=== PATIENT | male | born 1985 | race American Indian/Alaskan Native ===

== ENCOUNTER 2018-01-19 22:05 | Emergency (ER) | payer OTHER ==
[2018-01-19] MEDS ORDERED: ceFAZolin 2 GM in NACL 0.9% 100 ML IV ONE (22:29)
[2018-01-19] MEDS ORDERED: DILAUDID IV ONE (22:29)
--- NOTE | 2018-01-19 22:29 | Emergency Department Report ---
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 He has a puncture wound to his left face just below his left eye, and can move his eye, but is painful to move the eye, and his eye is blurry , although he can see light and see large objects. He has significant pain, rates it maximally, localized to the area of injury. He has no difficulty speaking, breathing, and no other injury. He did not fall or strike his head, and there was no loss of consciousness. He has no focal neurologic deficits. Past medical history is one of good general health, takes no routine medications , has no allergies, does not recall his last tetanus shot. - Related Data Previous Rx's Medication Instructions Recorded Last Taken Type Amoxicillin/Potassium Clav 1 each PO BID #14 tablet 01/20/18 Unknown Rx [Augmentin 875-125 Tablet] HYDROcodone/APAP 7.5-325 [[place] 1 each PO Q6HR PRN #25 tablet 01/20/18 Unknown Rx 7.5/325] Sulfamethoxazole/Trimethoprim 1 each PO BID #14 tablet 01/20/18 Unknown Rx [Bactrim DS TAB] Allergies Allergy/AdvReac Type Severity Reaction Status Date / Time chocolate flavor Allergy Rash Verified 08/19/16 10:04 ED Review of Systems ROS: Stated complaint: EYE INJURY Other details as noted in HPI ED Past Medical Hx - Social History Smoking Status: Current Some Day Smoker Substance Use Type: Alcohol - Medications Home Medications: Home Medications Medication Instructions Recorded Confirmed Last Taken Type Amoxicillin/Potassium Clav 1 each PO BID #14 tablet 01/20/18 Unknown Rx [Augmentin 875-125 Tablet] HYDROcodone/APAP 7.5-325 [[place] 1 each PO Q6HR PRN #25 tablet 01/20/18 Unknown Rx 7.5/325] Sulfamethoxazole/Trimethoprim 1 each PO BID #14 tablet 01/20/18 Unknown Rx [Bactrim DS TAB] ED Physical Exam - General General appearance: alert, in distress (moderate discomfort from area of injury left infra-orbital face) - Head Head exam: Present: normocephalic, other (facial laceration as noted above) - Eye Eye exam: Present: normal appearance, PERRL, other (decreased visual acuity, normal extraocular movements, conjugate gaze, no visible globe disruption) - ENT ENT exam: Present: mucous membranes moist, TM's normal bilaterally, other ( stellate burst-type laceration left infraorbital face, 5 separate laceration fragment, each 2 cm) - Neck Neck exam: Present: normal inspection, full ROM. Absent: tenderness - Respiratory Respiratory exam: Present: normal lung sounds bilaterally. Absent: respiratory distress, chest wall tenderness - Cardiovascular Cardiovascular Exam: Present: regular rate, normal heart sounds - GI/Abdominal GI/Abdominal exam: Present: soft. Absent: tenderness - Rectal Rectal exam: Present: deferred - Extremities Exam Extremities exam: Present: normal inspection, full ROM. Absent: tenderness, pedal edema - Back Exam Back exam: Present: normal inspection, full ROM. Absent: tenderness - Neurological Exam Neurological exam: Present: alert, oriented X3, CN II-XII intact (decreased visual acuity left eye, able to identify fingers correctly; right eye normal;). Absent: motor sensory deficit - Skin Skin exam: Present: warm, dry, intact ED Course Vital Signs 01/19/18 01/20/18 01/20/18 22:32 00:40 01:10 Temperature 36.6 C Pulse Rate 77 Respiratory 16 16 14 Rate Blood Pressure 137/74 O2 Sat by Pulse 99 Oximetry 01/20/18 02:03 Temperature Pulse Rate Respiratory 14 Rate Blood Pressure O2 Sat by Pulse Oximetry - Laceration /Wound Repair Left Face Wound Location: face Wound Length (cm): 8 (multiple flap fragments, 8 cm total) Wound's Depth, Shape: into muscle, stellate, contused tissue Wound Explored: no foreign body removed Irrigated w/ Saline (ccs): 250 Anesthesia: 1% Lidocaine Volume Anesthetic (ccs): 12 Wound Debrided: minimal Wound Repaired With: sutures Suture Size/Type: 6:0, 5:0 Number of Sutures: 12 Layer Closure?: Yes Deep Layer Suture Size/Type: 4:0, dexon Number Deep Layer Sutures: 4 Sterile Dressing Applied?: No ED Medical Decision Making - Radiology Data CT scan of orbit shows no foreign body, no fracture, globe is intact. - Medical Decision Making Patient has a left facial infraorbital laceration, burst-type, from being struck by metal hook from work assembly line, with multiple fragments that were reapproximated with subcutaneous and muscle sutures, 4 total, one central 5-0 nylon purse straight laceration to reapproximate the stellate fragments centrally, and a total of 12 running 6-0 Prolene sutures for each flap fragment , for a good closure with no debridement. No foreign body seen on examination. Patient will need close follow-up, will need ophthalmology consultation for resolution of blurriness of vision, but there is no evidence of globe injury, and no facial fracture either. Patient instructed to contact work to make arrangements for Worker's Comp. follow-up, and he may cosmetic revision, but I recommended that he deferred this for several months, but to keep this as a treatment option later. Suture removal planned for 5-7 days. - Differential Diagnosis facial laceration, globe laceration, periorbital fracture, facial fracture Critical Care Time: No Critical care attestation.: If time is entered above; I have spent that time in minutes in the direct care of this critically ill patient, excluding procedure time. ED Disposition Clinical Impression: Decreased visual acuity Complex laceration of face Qualifiers: Encounter type: initial encounter Qualified Code(s): S01.91XA - Laceration without foreign body of unspecified part of head, initial encounter Disposition: DC-01 TO HOME OR SELFCARE Is pt being admited?: No Does the pt Need Aspirin: No Condition: Stable Instructions: Suture Care (ED), Laceration (ED) Additional Instructions: Clinical wound gently, once a day, with warm water only, dabbing gently, to help keep clots from forming over sutures, so that the sutures can be more easily identified and more easily removed. He may apply whenever bandage you prefer for protective covering, and change bandage daily if necessary. We recommended 24-hour follow-up with an labor supervisor, and as we do not have an labor supervisor environmental control administrator, you should contact one locally, or contact her place of employment to make arrangements for follow-up with workman's comp doctor, as well as ophthalmologic follow-up as well. Take [place] for pain, and rest, and we have provided work release for the next week. See workman's comp doctor as soon as possible, and see labor supervisor within 1 or 2 days. Take Bactrim twice daily for infection, and take Augmentin twice daily as well for infection, for 1 week. Return for examination for signs of infection, which in fluid increased redness , increased pain, any increased swelling around the wound. Sutures can be removed in 5-7 days, and you may return here for suture removal, or at doctor's office, if they're capable as well. Your wound may need cosmetic revision later, but we recommended delay in this for at least 5 or 6 months, until you can see what the final wound and scar will look like. Prescriptions: Amoxicillin/Potassium Clav [Augmentin 875-125 Tablet] 1 each PO BID #14 tablet HYDROcodone/APAP 7.5-325 [[place] 7.5/325] 1 each PO Q6HR PRN #25 tablet PRN Reason: Pain Sulfamethoxazole/Trimethoprim [Bactrim DS TAB] 1 each PO BID #14 tablet Referrals: PRIMARY CARE, [Primary Care Provider] - 3-5 Days Forms: Work/School Release Form(ED) Time of Disposition: 04:44
[2018-01-19] MEDS ORDERED: BOOSTRIX IM ONE (22:30)
[2018-01-19] MEDS ORDERED: NACL 0.9% IR ONE (22:31)
[2018-01-20] MEDS ORDERED: DILAUDID IV PRN (00:19)
[2018-01-20] MEDS ORDERED: ZOFRAN IV ONE (00:20)
--- NOTE | 2018-01-20 00:24 | Cat Scan Report ---
FINAL REPORT EXAM: CT ORBIT/EAR/FOSSA WO CON HISTORY: left facial/eye pain, penetrating trauma TECHNIQUE: Routine axial imaging was obtained of the orbits without IV contrast with sagittal and coronal reconstructions. FINDINGS: There is a laceration overlying the ventral aspect of the left midface overlying the anterior wall of the left maxillary sinus. There are small foci of subcutaneous air. There is no evidence of fracture. The intraorbital structures appear normal bilaterally. There is no evidence of radiopaque foreign body. The orbital rims and floors appear intact. The sinuses reveal mild mucosal thickening in the maxillary sinuses. The nasal septum is midline. The nasal bones, zygomatic arches and mandible appear intact. IMPRESSION: Localized soft tissue laceration overlying the anterior wall of the left maxillary sinus. No evidence of facial bone fracture, radiopaque foreign body or orbital injury bilaterally. Mild mucosal thickening in both maxillary sinuses.
[2018-01-20] MEDS: MORPHINE IV PRN ×2 (00:40→02:03)
[2018-01-20] MEDS ORDERED: XYLOCAINE 1%/ EPI 1:100,000 INFILTRATI ONE (03:18)
[2018-01-20] MEDS ORDERED: AUGMENTIN 875 MG PO ONE (04:44)
[2018-01-20] MEDS ORDERED: BACTRIM DS PO ONE (04:45)
[2018-01-20 05:03] VITALS: BP 121/78
[2018-01-20] MEDS ORDERED: NORCO 10/325 PO ONE (05:20)
[2018-01-20] MEDS ORDERED: NORCO 10/325 ONE (05:22)
== END 2018-01-20 05:30 | disposition home or self-care (01) ==
LOC: ED 22:05
DX: S01.81XA Laceration without foreign body of other part of head, initial encounter (principal); F17.200 Nicotine dependence, unspecified, uncomplicated; Z91.018 Allergy to other foods; W22.8XXA Striking against or struck by other objects, initial encounter; Y93.89 Activity, other specified; Y92.89 Other specified places as the place of occurrence of the external cause; Y99.8 Other external cause status
CPT/HCPCS: 12053; 70480; 90471; 90715; 96365; 96375; 99284; J0690; J1170; J2270; J2405

== ENCOUNTER 2018-01-22 14:05 | Emergency (ER) | payer OTHER ==
[2018-01-22 14:12] VITALS: BP 123/72
[2018-01-22] MEDS ORDERED: ZOFRAN IM ONE (16:00)
[2018-01-22] MEDS ORDERED: TORADOL IM ONE (16:00)
--- NOTE | 2018-01-22 16:05 | Emergency Department Report ---
ED General Adult HPI - General Chief complaint: Pain General Stated complaint: FACIAL PAIN Time Seen by Provider: 01/22/18 15:46 Source: patient Mode of arrival: Ambulatory Limitations: No Limitations - History of Present Illness Initial comments: Patient is 32 years old male with no significant past medical history. Patient stated that he was injured at work on January 20 and he came here to the ER and he had a suture and a CT orbit which he did not show any fracture or globe rupture. Patient followed up with his career resource technician on Tuesday and he was told that using his fine and he just need to follow up with him back this coming . Patient presented to the ER today complaining of generalized pain to the fascial areas around the suture. He denied any fever, nausea or vomiting. Patient is asking for pain medicine. Sutures examined it is dry and no discharge. - Related Data Previous Rx's Medication Instructions Recorded Last Taken Type Amoxicillin/Potassium Clav 1 each PO BID #14 tablet 01/20/18 Unknown Rx [Augmentin 875-125 Tablet] HYDROcodone/APAP 7.5-325 [[place] 1 each PO Q6HR PRN #25 tablet 01/20/18 Unknown Rx 7.5/325] Sulfamethoxazole/Trimethoprim 1 each PO BID #14 tablet 01/20/18 Unknown Rx [Bactrim DS TAB] Allergies Allergy/AdvReac Type Severity Reaction Status Date / Time chocolate flavor Allergy Rash Verified 01/22/18 14:09 ED Review of Systems ROS: Stated complaint: FACIAL PAIN Other details as noted in HPI Comment: All other systems reviewed and negative Constitutional: denies: chills, fever Respiratory: denies: cough, orthopnea, shortness of breath Cardiovascular: denies: chest pain Gastrointestinal: denies: abdominal pain, nausea Genitourinary: denies: urgency, dysuria, frequency, hematuria Musculoskeletal: denies: back pain ED Past Medical Hx - Past Medical History Previous Medical History?: No - Surgical History Past Surgical History?: No - Social History Smoking Status: Never Smoker Substance Use Type: None - Medications Home Medications: Home Medications Medication Instructions Recorded Confirmed Last Taken Type Amoxicillin/Potassium Clav 1 each PO BID #14 tablet 01/20/18 Unknown Rx [Augmentin 875-125 Tablet] HYDROcodone/APAP 7.5-325 [[place] 1 each PO Q6HR PRN #25 tablet 01/20/18 Unknown Rx 7.5/325] Sulfamethoxazole/Trimethoprim 1 each PO BID #14 tablet 01/20/18 Unknown Rx [Bactrim DS TAB] ED Physical Exam - General Limitations: No Limitations General appearance: alert, in no apparent distress - Head Head exam: Present: other (left maxilla and zygomatic laceration repair, wound is dry and intact no erythema or discharge) - ENT ENT exam: Present: normal exam, normal orophraynx, mucous membranes moist - Respiratory Respiratory exam: Present: normal lung sounds bilaterally. Absent: respiratory distress, chest wall tenderness - Cardiovascular Cardiovascular Exam: Present: regular rate, normal rhythm, normal heart sounds - GI/Abdominal GI/Abdominal exam: Present: soft, normal bowel sounds. Absent: distended, tenderness, guarding, rebound, rigid, organomegaly, mass, bruit, pulsatile mass - Extremities Exam Extremities exam: Present: normal inspection, full ROM, normal capillary refill - Back Exam Back exam: Present: normal inspection, full ROM. Absent: CVA tenderness (L) - Neurological Exam Neurological exam: Present: alert, oriented X3, CN II-XII intact, normal gait, reflexes normal - Skin Skin exam: Present: warm, intact, normal color ED Course Vital Signs 01/22/18 14:09 Temperature 98.5 F Pulse Rate 69 Respiratory 18 Rate Blood Pressure 123/72 O2 Sat by Pulse 100 Oximetry Critical care attestation.: If time is entered above; I have spent that time in minutes in the direct care of this critically ill patient, excluding procedure time. ED Disposition Clinical Impression: Facial pain Disposition: DC-01 TO HOME OR SELFCARE Is pt being admited?: No Condition: Stable Instructions: Laceration (ED) Referrals: PRIMARY CARE, [Primary Care Provider] - 3-5 Days
== END 2018-01-22 16:38 | disposition home or self-care (01) ==
LOC: ED 14:05
DX: R51 Headache (principal); Z91.02 Food additives allergy status
CPT/HCPCS: 96372; 99282; J1885; J2405

== ENCOUNTER 2018-02-07 08:06 | Emergency (ER) | payer OTHER ==
[2018-02-07 08:23] VITALS: BP 117/76
[2018-02-07] MEDS ORDERED: XYLOCAINE 1% 20 mL INFILTRATI ONE (09:43)
--- NOTE | 2018-02-07 09:46 | Emergency Department Report ---
ED General Adult HPI - General Chief complaint: Laceration/Recheck/Suture Stated complaint: PAIN ON LFT SIDE FACE Time Seen by Provider: 02/07/18 09:08 Source: patient Mode of arrival: Ambulatory Limitations: No Limitations - History of Present Illness Initial comments: Patient presents to emergency department for suture removal status post work- related injury on 01/19/2018. Patient states she's been followed by Worker's Comp where he went 4 days after sutures were placed to have them remove but they were not done because he was told to area was too tender. Patient also complains of increasing headaches with activity along with nausea without episodes of vomiting as well as dizziness that is made worse after increased activity or watching TV. Patient complains of having a diffuse headache that he describes as dull in nature and states that rest makes it better but any activity increases his dizziness or headaches. -: Gradual Location: head, face Radiation: non-radiation Severity scale (0 -10): 5 Quality: dull Consistency: constant Associated Symptoms: denies other symptoms Treatments Prior to Arrival: none - Related Data Previous Rx's Medication Instructions Recorded Last Taken Type Amoxicillin/Potassium Clav 1 each PO BID #14 tablet 01/20/18 Unknown Rx [Augmentin 875-125 Tablet] HYDROcodone/APAP 7.5-325 [[place] 1 each PO Q6HR PRN #25 tablet 01/20/18 Unknown Rx 7.5/325] Sulfamethoxazole/Trimethoprim 1 each PO BID #14 tablet 01/20/18 Unknown Rx [Bactrim DS TAB] Ketorolac [Toradol] 10 mg PO Q6H PRN #20 tablet 01/22/18 Unknown Rx Ondansetron [Zofran Odt] 4 mg PO Q8HR PRN #14 tab.rapdis 01/22/18 Unknown Rx HYDROcodone/APAP 7.5-325 [[place] 1 each PO Q6HR PRN #18 tablet 02/07/18 Unknown Rx 7.5/325] Allergies Allergy/AdvReac Type Severity Reaction Status Date / Time chocolate flavor Allergy Rash Verified 01/22/18 14:09 ED Review of Systems ROS: Stated complaint: PAIN ON LFT SIDE FACE Other details as noted in HPI Constitutional: denies: chills, fever Eyes: denies: eye pain, eye discharge, vision change ENT: denies: ear pain, throat pain Respiratory: denies: cough, shortness of breath, wheezing Cardiovascular: denies: chest pain, palpitations Endocrine: no symptoms reported Gastrointestinal: denies: abdominal pain, nausea, diarrhea Genitourinary: denies: urgency, dysuria Musculoskeletal: denies: back pain, joint swelling, arthralgia Skin: denies: rash, lesions Neurological: headache. denies: weakness, paresthesias Psychiatric: denies: anxiety, depression Hematological/Lymphatic: denies: easy bleeding, easy bruising ED Past Medical Hx - Past Medical History Previous Medical History?: No - Surgical History Past Surgical History?: No - Social History Smoking Status: Never Smoker Substance Use Type: None - Medications Home Medications: Home Medications Medication Instructions Recorded Confirmed Last Taken Type Amoxicillin/Potassium Clav 1 each PO BID #14 tablet 01/20/18 Unknown Rx [Augmentin 875-125 Tablet] HYDROcodone/APAP 7.5-325 [[place] 1 each PO Q6HR PRN #25 tablet 01/20/18 Unknown Rx 7.5/325] Sulfamethoxazole/Trimethoprim 1 each PO BID #14 tablet 01/20/18 Unknown Rx [Bactrim DS TAB] Ketorolac [Toradol] 10 mg PO Q6H PRN #20 tablet 01/22/18 Unknown Rx Ondansetron [Zofran Odt] 4 mg PO Q8HR PRN #14 tab.rapdis 01/22/18 Unknown Rx HYDROcodone/APAP 7.5-325 [[place] 1 each PO Q6HR PRN #18 tablet 02/07/18 Unknown Rx 7.5/325] ED Physical Exam - General Limitations: No Limitations General appearance: alert, in no apparent distress - Head Head exam: Present: atraumatic, normocephalic - Eye Eye exam: Present: normal appearance, other (patient has really never laceration of the left infraorbital region with scabbing with the sutures embedded) - ENT ENT exam: Present: mucous membranes moist - Neck Neck exam: Present: normal inspection - Respiratory Respiratory exam: Present: normal lung sounds bilaterally. Absent: respiratory distress - Cardiovascular Cardiovascular Exam: Present: regular rate, normal rhythm. Absent: systolic murmur, diastolic murmur, rubs, gallop - GI/Abdominal GI/Abdominal exam: Present: soft, normal bowel sounds - Rectal Rectal exam: Present: deferred - Extremities Exam Extremities exam: Present: normal inspection - Back Exam Back exam: Present: normal inspection - Neurological Exam Neurological exam: Present: alert, oriented X3, CN II-XII intact, normal gait, motor sensory deficit, reflexes normal - Psychiatric Psychiatric exam: Present: normal affect, normal mood - Skin Skin exam: Present: warm, dry, intact, normal color. Absent: rash ED Course Vital Signs 02/07/18 08:19 Temperature 98.1 F Pulse Rate 62 Respiratory 16 Rate Blood Pressure 117/76 O2 Sat by Pulse 100 Oximetry ED Medical Decision Making - Medical Decision Making Procedure note Suture removal 1% lidocaine was used to numb O [place] on the left eye The patient's scabs were removed and sutures were removed Patient tolerated procedure well Critical care attestation.: If time is entered above; I have spent that time in minutes in the direct care of this critically ill patient, excluding procedure time. ED Disposition Clinical Impression: Concussion, Visit for suture removal Disposition: - TO HOME OR SELFCARE Is pt being admited?: No Does the pt Need Aspirin: No Condition: Stable Instructions: Concussion (ED), Suture Removal (ED) Additional Instructions: return if worse Prescriptions: HYDROcodone/APAP 7.5-325 [[place] 7.5/325] 1 each PO Q6HR PRN #18 tablet PRN Reason: Pain Referrals: PRIMARY CARE,MD [Primary Care Provider] - 3-5 Days [facility] [Outside] - 3-5 Days Time of Disposition: 10:38
[2018-02-07] MEDS ORDERED: NORCO 7.5/325 PO ONE (10:32)
[2018-02-07] MEDS ORDERED: ZOFRAN ODT PO ONE (10:32)
== END 2018-02-07 10:45 | disposition home or self-care (01) ==
LOC: ED 08:06
DX: S06.0X0A Concussion without loss of consciousness, initial encounter (principal); S01.81XD Laceration without foreign body of other part of head, subsequent encounter; Z91.018 Allergy to other foods; X58.XXXA Exposure to other specified factors, initial encounter; Y93.89 Activity, other specified; Y92.89 Other specified places as the place of occurrence of the external cause; Y99.8 Other external cause status
CPT/HCPCS: 99282; Q0162

== ENCOUNTER 2020-08-24 11:43 | Emergency (ER) | payer OTHER ==
[2020-08-24 11:56] VITALS: BP 127/77
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
== END 2020-08-24 14:23 | disposition home or self-care (01) ==
LOC: ED 11:43
DX: S13.4XXA Sprain of ligaments of cervical spine, initial encounter (principal); S39.012A Strain of muscle, fascia and tendon of lower back, initial encounter; Z91.018 Allergy to other foods; Z79.899 Other long term (current) drug therapy; V49.59XA Passenger injured in collision with other motor vehicles in traffic accident, initial encounter; Y92.410 Unspecified street and highway as the place of occurrence of the external cause; Y93.89 Activity, other specified; Y99.8 Other external cause status
CPT/HCPCS: 72040; 72100; 99283